=== PATIENT | male | born 1990 | race Hispanic/Latino ===

== ENCOUNTER 2020-01-11 10:47 | Inpatient (IN) | payer SELFPAY ==
--- NOTE | 2020-01-11 11:22 | RAD ---
Radiograph left fourth digit 3 views: 01/11/2020 11:11 AM HISTORY: 29-year-old male status post penetrating injury FINDINGS: There is a metallic nail entering the fourth digit from the radial side, embedded within the soft tis sues of the volar side, and abutting the volar cortical edge of the neck of the fourth middle phalanx. There is no fracture or dislocation. IMPRESSION: Metallic foreign body embedded in soft tissues of fourth digit, but no fracture
[2020-01-11] MEDS ORDERED: Lidocaine 1% (PF) 30 ML VIAL ONE (12:07)
[2020-01-11] MEDS ORDERED: Bupivacaine 0.5% 10 ML VIAL ONE (12:08)
[2020-01-11] MEDS ORDERED: Dexamethasone 20 MG/5 ML VIAL ONE (12:42)
[2020-01-11] MEDS ORDERED: Ondansetron PF 4 MG/2 ML Vial ONE (12:42)
[2020-01-11] MEDS ORDERED: PROPOFOL 200 MG/20 ML VIAL ONE (12:42)
[2020-01-11] MEDS ORDERED: Lidocaine 1% PF 5 ML VIAL ONE (12:42)
[2020-01-11] MEDS ORDERED: Ketorolac Tromethamine 30 MG/ML VIAL ONE (12:42)
[2020-01-11] MEDS ORDERED: Adacel (T-DAP) 0.5 ML SYRINGE ONE (12:48)
[2020-01-11] MEDS ORDERED: Fentanyl 100 MCG/2 ML VIAL SLOW IVP PRN (14:17)
[2020-01-11] MEDS ORDERED: Promethazine HCl 25 MG/ML VIAL IM PRN ×3 (14:17→19:14)
[2020-01-11] MEDS ORDERED: Acetaminophen 325 MG TAB PO PRN ×2 (14:17→17:14)
[2020-01-11] MEDS ORDERED: Acetaminophen/Codeine 30-300mg Tablet PO PRN ×2 (14:17)
[2020-01-11] MEDS ORDERED: Ondansetron PF 4 MG/2 ML Vial IV PRN ×2 (14:17→17:14)
[2020-01-11] MEDS ORDERED: traMADol HCl 50 MG TAB PO PRN ×3 (14:17→17:14)
[2020-01-11] MEDS ORDERED: HYDROcodone/Acetaminophen 5/325 mg Tablet PO PRN ×3 (14:17→17:14)
--- NOTE | 2020-01-11 14:26 | CON ---
DATE OF CONSULTATION: This is Goldy Tejada PA-C dictating a report for Remington Connelly MD. HISTORY OF PRESENT ILLNESS: We were asked by the ER to see the patient. The patient was on a roof when unfortunately he placed a veena nail into his left fourth digit. The patient was in quite a bit of pain when he came in, so he has a digit block, but per homicide detective he could feel his finger prior to coming into the emergency room. He is here with his coremaking supervisor, who speaks Tajik and is giving us some help, but we are basically getting all the information from the patient via iPad homicide detective. No other injuries. The nail does have some barbs in it, so Dr. Connelly has been alerted of the finger and would like to take the patient to the operating room to make sure he does not have any retention of particulate from the nail. Looking at the x-ray, it appears it missed the bone, but due to the barbs, it stuck in the finger quite well. PAST MEDICAL HISTORY: Healthy, does not see a doctor regularly. SOCIAL HISTORY: [employer] from [employer]. MEDICATIONS: None. ALLERGIES: NONE. PAST SURGICAL HISTORY: None. FAMILY HISTORY: Noncontributory toward this visit. REVIEW OF SYSTEMS: Left fourth digit pain, now better with a digital block. REVIEW OF SYSTEMS: Negative. PHYSICAL EXAMINATION: GENERAL: Well-nourished, well-developed male, here with his coremaking supervisor via iPad homicide detective. Speech is clear, fluent, and oriented x3. VITAL SIGNS: Respirations 16, in no acute distress. HEENT: Normal exam. NECK: Supple. Trachea midline. EXTREMITIES: Upper extremities, equal size, shape, and symmetry. Normal bulk and tone with the exception of the left fourth digit, which has a nail throughout. He has no sensations currently, but per homicide detective prior to the digital block he had good sensations. Lower extremities, he is walking around the room without any difficulties. ASSESSMENT: Trauma to the left fourth digit via veena nail. PLAN: Talked with Dr. Connelly and he would like to take him to the OR, get this cleaned out. His tetanus was updated. He is getting IV per some antibiotics. His last meal was at 7 this morning. We will keep him n.p.o. We discussed risks and benefits of surgery. His questions and concerns were addressed, and he is amenable to go forth with surgery. Let the patient know he will probably need to remain overnight for some antibiotics, then hopefully if it is amenable to Dr. Connelly, he can go home tomorrow. He and his boss do reside in [place] and his boss may leave and pick him up tomorrow. He had no further questions or concerns. Job ID: [id number]
[2020-01-11] MEDS ORDERED: Communication Order-Pharmacy FS SCH ×3 (14:30→17:30)
[2020-01-11] MEDS ORDERED: CEFAZOLIN 2 GM in Premix Bag 1 BAG IVPB SCH (14:30)
[2020-01-11] MEDS ORDERED: Fentanyl 100 MCG/2 ML VIAL ONE ×2 (16:51→19:01)
[2020-01-11] MEDS ORDERED: Bupivacaine PF 0.5% 30 ML VIAL ONE (16:52)
[2020-01-11] MEDS ORDERED: Bacitracin Zinc Ointment 30 gm TUBE ONE (16:52)
[2020-01-11] MEDS ORDERED: Morphine 2 MG/ML VIAL SLOW IVP PRN (17:14)
[2020-01-11] MEDS ORDERED: Bisacodyl 10 MG SUPP PR PRN (17:14)
[2020-01-11] MEDS ORDERED: Milk Of Magnesia 30 ML UDCUP PO PRN (17:14)
[2020-01-11] MEDS ORDERED: HYDROcodone/Acetaminophen 10/325 mg Tablet PO PRN (17:14)
[2020-01-11] MEDS ORDERED: TETANUS AND DIPHTHERIA TOX/PF 0.5 ML DISP.SYRIN IM SCH (17:15)
[2020-01-11] MEDS ORDERED: Meperidine HCl/PF 25 MG/ML VIAL IM PRN (17:21)
[2020-01-11] MEDS ORDERED: Ketorolac Tromethamine 30 MG/ML VIAL IVP PRN (17:21)
[2020-01-11] MEDS ORDERED: Ketorolac Tromethamine 30 MG/ML VIAL IVP SCH (18:00)
[2020-01-11] MEDS ORDERED: Promethazine HCl 25 MG/ML VIAL ONE (19:02)
[2020-01-11] MEDS ORDERED: Ondansetron HCl/PF 4 MG/2 ML Vial IVP PRN (19:14)
[2020-01-11] MEDS ORDERED: Promethazine HCl 25 MG/ML VIAL SLOW IVP PRN (19:14)
[2020-01-11 20:46] VITALS: BMI 24.2
[2020-01-11] MEDS ORDERED: Aspirin 81 mg Enteric Coated Tablet PO SCH (21:00)
[2020-01-11] MEDS ORDERED: Vancomycin 1 GM in Premix Bag 1 BAG IVPB SCH (21:00)
[2020-01-11] MEDS: Aspirin 81 mg Enteric Coated Tablet PO SCH (21:54)
[2020-01-12] MEDS: Sodium Chloride 0.9% 100 ML IV SCH ×3 (03:29→03:31)
[2020-01-12 06:23] LABS: Calc. Creatinine Clearance 171 mL/min (70-130); Estimated GFR-MDRD Greater than 90
--- NOTE | 2020-01-12 08:14 | RAD ---
LEFT RING FINGER 2 VIEWS: HISTORY: Removal of foreign body. FINDINGS: These are C-arm views of the finger. No radiopaque foreign bodies are seen on these views. IMPRESSION: No evidence of foreign body. POS: RONNY
--- NOTE | 2020-01-12 09:49 | OP ---
DATE OF PROCEDURE: 01/11/2020 PREOPERATIVE DIAGNOSIS: Left ring finger distal interphalangeal joint level nail high-speed from a nail gun injury. POSTOPERATIVE DIAGNOSIS: Left ring finger distal interphalangeal joint level nail high-speed from a nail gun injury. FINDINGS: Intraoperative injury, beginning obliquely under a neurovascular bundle on the radial side, under the tendon of the flexor digitorum profundus just proximal to its insertion through the volar plate on the radial side and out the volar plate on the ulnar side without detaching the volar plate. PROCEDURES PERFORMED: 1. Arthrotomy with debridement of joint. 2. Removal of intraarticular nail. 3. Debridement of material associated with open joint. 4. C-arm supervision. 5. Neuroplasty, radial and ulnar digital nerve. 6. Tenotomy, flexor digitorum profundus tendon. SPECIMEN REMOVED: The nail with findings that the nail's deepest adela was completely flattened by the impact. Thus, it would be able to be removed from the side eventually without further damage to the structures. ESTIMATED BLOOD LOSS: 10 mL. TOURNIQUET TIME: 35 minutes. Total injection 20 mL of 0.5% Marcaine, 10 given before the procedure and 10 given after the wound was closed. DESCRIPTION OF PROCEDURE: After successful general endotracheal anesthesia, the limb was prepped and draped. We gave the 10 mL injection after doing a time-out with 0.5% Marcaine, no epi as a metacarpophalangeal block level and exsanguinated the limb. Tourniquet inflated to 250 mmHg pressure. We made a Jaxson incision beginning 1 cm distal and radial avoiding the center of the palmar tuft, then coursing past the nail which was distal by 4 mm to the palmar flexion crease of the distal interphalangeal joint. Then, Jaxson zigzag across down to the most ulnar aspect of the PIP joint. We carried this through skin and subcutaneous tissue and then we noticed medially the neurovascular bundle was completely volar to the nail entry wound and the flexor digitorum profundus distal 1 cm was completely intact to include the fact that the volar plate on the radial aspect was elevated and the nail had penetrated this area. On radiographs, we noticed that they could not see the second cara in any projection, but also we could not see the joint in any projection. We performed a neuroplasty on the ulnar side, found that the nail was again deep to the neurovascular bundle. At this time, it was through the midportion of the palmar joint. We debrided this area with tenotomy scissors, [place] blade, and then slowly with the C-arm in the room, removed the nail noticing that the cara that was inside the joint was completely flattened against the side of the nail. We then performed a further flexor digitorum profundus tenotomy and elevated the volar plate portion just under the A4 gokul approximately 3 more mm so we could visualize the joint, we curetted and removed one small piece of debris, but otherwise there was no debris seen in the joint, only subcutaneously. We then used a curette, a Elias type pickup, a needle tip syringe with an 18-gauge catheter, blunt-tip, that could be placed all way across the joint and get flow from the radial side out the ulnar side, we irrigated the joint with 750 mL of normal saline. We irrigated the wound with another 250 mL and we felt that the flexor tendon was intact, neurovascular bundle was intact, and there was no further debris. We released the tourniquet. We waited 2 minutes to make sure that the circulation was maintained and it was. Then, we did not close the hole in the joint. We did not close the 5 mm wound made on the radial side, but we closed the portion that we created. There was no evidence clinically or visibly of flexor sheath violation at this time. He did not have any signs of such flexor sheath involvement clinically prior to the procedure. We finished the remaining closure of the proximal portion of the incision with interrupted 4-0 nylon simple pattern, placed him in a soft bulky dressing. He had 1-second refill with pink digit and the patient left the operating room without evidence of anesthetic or operative complication. Job ID: [id number]
[2020-01-12 12:05] VITALS: TEMP 98.2
[2020-01-12] MEDS: Aspirin 81 mg Enteric Coated Tablet PO SCH (14:52)
[2020-01-12 15:02] VITALS: BP 120/60
== END 2020-01-12 16:29 | disposition home or self-care (01) | DRG 906 ==
LOC: ERS 10:47 → SDC 16:05 → SURG A 16:05
PROVIDERS: ADMIT Orthopaedic Surgery Hand Surgery; ATTEND Orthopaedic Surgery Hand Surgery
PROC: 0RBX0ZZ Excision of Left Finger Phalangeal Joint, Open Approach (ICD-10-PCS; principal; 2020-01-11)
PROC: 0RCX0ZZ Extirpation of Matter from Left Finger Phalangeal Joint, Open Approach (ICD-10-PCS; 2020-01-11)
PROC: 01Q60ZZ Repair Radial Nerve, Open Approach (ICD-10-PCS; 2020-01-11)
PROC: 01Q40ZZ Repair Ulnar Nerve, Open Approach (ICD-10-PCS; 2020-01-11)
DX: S61.245A Puncture wound with foreign body of left ring finger without damage to nail, initial encounter (principal); W29.4XXA Contact with nail gun, initial encounter; Y92.018 Other place in single-family (private) house as the place of occurrence of the external cause; S64.02XA Injury of ulnar nerve at wrist and hand level of left arm, initial encounter; S64.22XA Injury of radial nerve at wrist and hand level of left arm, initial encounter
CPT/HCPCS: 36415; 64450; 76000; 82565; 90471; 90715; 96365; J0690; J1100; J1885; J2001; J2405; J2550; J2704; J3010; J3370; J3490; J7030; S0020